=== PATIENT | female | born 1995 | race Caucasian/White ===

== ENCOUNTER → 2022-03-17 | Day surgery (SDC) | payer OTHER ==
[~2022-03-17] VITALS: Ht 160 cm; Wt 52.2 kg
[~2022-03-17] MED LIST: ATOMOXETINE HCL25 MG PO; BLISOVI FE 1-21 EACH PO; DOCOSANOL TOP; DOXYCYCLINE HY100 MG PO; ESCITALOPRAM OX10 MG PO; FLUOCINOLONE AC15 GM AU; MUPIROCIN 2%22 GM TOP; NAPROXEN500 MG PO; NORCO 5-325 TA1 EACH PO; VITAMIN D2 PO; ZOVIRAX200 MG PO
[2022-03-17 10:44] LABS: HCG (URINE) SCREEN NEGATIVE (NEGATIVE)
== END | disposition home or self-care (01) ==
LOC: FAS 10:07
PROVIDERS: Anesthesiology
DX: K61.0 Anal abscess (principal); F90.9 Attention-deficit hyperactivity disorder, unspecified type; F41.9 Anxiety disorder, unspecified; F32.A Depression, unspecified; Z87.891 Personal history of nicotine dependence; Z79.899 Other long term (current) drug therapy
CPT/HCPCS: 84703; J1170; J2250; J2405; J3010; J7120